=== PATIENT | male | born 1985 | race African-American/Black ===

== ENCOUNTER 2016-05-31 21:04 | Emergency (ER) | payer SELFPAY ==
[2016-05-31 21:14] VITALS: BP 116/76
--- NOTE | 2016-05-31 21:44 | ERNOTE ---
[facility] Date of Service: 05/31/16 Presenting Symptoms: other - sore throat Time Seen by Provider: 05/31/16 21:39 Source: patient Exam Limitations: no limitations - Immun/Allergies/Home Medications Immunizations: IMMUNIZATION HX Immunizations Up to Date No History of Influenza Vaccine No Hx Pneumococcal Vaccination No Allergies/Adverse Reactions: Allergies Allergy/AdvReac Type Severity Reaction Status Date / Time No Known Allergies Allergy Unverified 05/31/16 21:10 Home Medications: HOME MEDICATIONS NK [No Home Medication] 05/31/16 [Last Taken Unknown] - Pain Score Pain Score #1 Pain Score: 6 - History of Present Illness Narrative: Pt resports onset of sore throat on 05/28/16, along with productive cough, nasal drainage and post nasal dc. Date (Duration): 05/28/16 Prearrival Treatment: Present: other - halls, OTC cold meds and mucinex Modifying Factors - Improves: Reports: other - halls Modifying Factors - Worsens: Reports: nothing Associated Symptoms - ENT: Reports: cough, nasal congestion/drainage. Denies: facial pain/swelling Review of Systems - Review of Systems Constitutional: Present: fatigue. Absent: fever, chills ENT: Present: ear pain, nasal drainage, sore throat. Absent: ear discharge Respiratory: Present: cough, wheezing. Absent: shortness of breath Cardiology: Absent: chest pain Gastrointestinal/Abdominal: Absent: nausea, vomiting Skin: Absent: rash - Patient's Past Medical History Patient History - Medical: No pertinent hx Patient History - Cancer: No Hx of Cancer Patient History - Surgical Procedures: No surgical history - Social History Living Situations: home Smoking Status: Current every day smoker Have you smoked in the past 12 months: No Do you dip or chew tobacco: No Patient requests Smoking Cessation Consult: No Initiate information on Smoking Cessation: No Alcohol Use: none Drug Use: none Physical Exam - Physical Exam General Appearance: Present: wd/wn, alert, no apparent distress Ears, Nose, Throat: Present: nasal congestion - mild, pharyngeal erythema - moderate, other - TMs intact and wnl david Neck: Absent: lymphadenopathy (R), lymphadenopathy (L) Respiratory: Present: no respiratory distress, lungs clear. Absent: crackles, rhonchi, wheezing Cardiovascular/Chest: Present: regular rate, rhythm, no murmur Neurological Exam: Present: alert, oriented Skin Exam: Present: normal color, warm/dry ED Progress - Date and Time Seen: Date and Time: 05/31/16 22:05 Reviewed strep results and dc plan with pt. - Results and Orders Patient's Lab Results:: I have reviewed the patient's lab results. - Vital Signs Patient's Vital Signs:: I have reviewed the patient's vital signs. Vital Signs: Vital Signs 05/31/16 21:10 Temperature 36.8 C Pulse Rate 93 Respiratory 16 Rate Blood Pressure 116/76 O2 Sat by Pulse 98 Oximetry - Progress/Reassessment Chief Complaint: Sore Throat Departure Clinical Impression: Viral pharyngitis Acute bronchitis Qualifiers: Bronchitis organism: unspecified organism Qualified Code(s): J20.9 - Acute bronchitis, unspecified - Departure Disposition: Home self-care Condition: Good Instructions: Acute Bronchitis, [id number], Pharyngitis, [id number] Additional Instructions: Warm salt water gargles Tylenol or motrin as needed for pain Follow up with your doctor if symptoms do not improve. Return to ER for any difficulty breathing
[2016-05-31] MEDS ORDERED: predniSONE 20 MG TABLET PO ONE (22:09)
[2016-05-31] MEDS ORDERED: predniSONE 20 MG TABLET ONE (22:11)
== END 2016-05-31 22:25 | disposition home or self-care (01) ==
LOC: ER 21:04
DX: J02.9 Acute pharyngitis, unspecified (principal); J20.9 Acute bronchitis, unspecified; F17.210 Nicotine dependence, cigarettes, uncomplicated